=== PATIENT | male | born 1955 | race Caucasian/White ===

== ENCOUNTER 2016-07-31 13:36 | Emergency (ER) | payer OTHER ==
[2016-07-31 13:39] VITALS: BP 166/92; BMI 34.1
[2016-07-31] MEDS ORDERED: ADACEL TDaP IM ONE ×2 (13:44→13:47)
--- NOTE | 2016-07-31 14:09 | RAD ---
History: Cut left thumb with a saw Study: Three views left hand Findings: There are osteophytes diffusely about the DIP joints. There is no fracture or dislocation. There is no radiopaque foreign body. There is disruption of the soft tissues on the palmar tip of the thumb. There is narrowing of the 1st and 3rd metacarpal phalangeal joints with minimal osteophyt e formation. Impression: Osteoarthritis primarily of the DIP joints. Soft tissue injury of the tip of the thumb Reported By:
--- NOTE | 2016-07-31 15:18 | DR.EXTPAIN ---
HPI - Time seen Time seen: 14:50 - PCP Primary Care Physician: VINICIO - HPI Comment HPI Comment: Patient was using a saw and accidentally cut his left thumb with a table saw. The nail was spared and there was a pierc of skin avulsed. - Complaint/Symptoms Chief Complaint:: PT. CUT HIS THUMB TO LEFT HAND ON TABLESAW. LACERATION NOTED TO PAD OF THUMB. - Source History Provided: Parent - Mode of arrival Mode of Arrival: Ambulatory - Timing Onset of Chief Complaint: 07/31/16 PMH - PMH Past Medical History: Yes Past Medical History: Diabetes, Hypertension, [place] Past Surgical History: Yes Surgical History: Angioplasty/Stents, Cholecystectomy, Ortho Surgery, Thyroidectomy, Tonsillectomy - Family History History of Family Medical Conditions: Yes Family Medical History: Diabetes Mellitus, [place] - Social History Does patient currently use any type of tobacco product: No Have you used tobacco products in the last 12 months: No Type of Tobacco Use: None Does any household member use tobacco: No Alcohol Use: None Do you use any recreational Drugs:: No Lives With: Spouse Lives Where: Home - infectious screening In the last 2 months have you had wt loss of >10#?: NO Have you had fever, night sweats or hemotysis?: No Have you traveled outside the country in the last 6 months?: No Isolation: Standard ROS - Review of Systems Constitutional: Diaphoresis ENTM: No Symptoms Reported Respiratoy: No Symptoms Reported Cardiovascular: No Symptoms Reported Gastrointestinal/Abdominal: No Symptoms Reported Genitourinary: No Symptoms Reported Neurological: No Symptoms Reported Musculoskeletal: No Symptoms Reported Integumentary: See HPI Hematologic/Lymphatic: No Symptoms Reported Endocrine: No Symptoms Reported Psychiatric: No Symptoms Reported All Other Systems: Reviewed and Negative PE - Vital Signs Vitals: Temperature 97.5 F Pulse Rate 94 Respiratory Rate 18 Blood Pressure [Left Arm] 134/87 Blood Pressure [Right Arm] 137/91 Blood Pressure 166/92 O2 Sat by Pulse Oximetry 98 - General Limitations: No Limitations General Appearance: Alert, In No Apparent Distress - Head Head Exam: Normal Inspection, Atraumatic - Eyes Eye exam: Normal Appearance, PERRL, EOMI - ENT ENT Exam: Normal Exam - Neck Neck Exam: Normal Inspection - Cardiovascular Cardiovascular Exam: Regular Rate - Abdominal Exam Abdominal Exam: Normal Inspection Abdominal Tenderness: negative: RUQ, RLQ, LUQ, LLQ, Epigastrium, Suprapubic, Diffuse, Mild, Moderate, Severe, Other - Extremities Extremities Exam: Other (left thumb with a 4cm laceration) - Upper Extremities Shoulder Exam: Normal Inspection ROR - XRAY XRAY Interpreted by: Radiologist (Negative for fracture) Procedures - Laceration/Wound Repair Left Thumb Wound's Depth, Shape: Irregular, Flap Wound Explored: clean Betadine Prep?: Yes Anesthesia: 1% Lidocaine Wound Repaired With: sutures Suture Size/Type: 4:0, [place] Number of Sutures: 7 Layer Closure?: No - Diagnosis Discharge Problem: Thumb laceration Qualifiers: Encounter type: initial encounter Damage to nail status: unspecified Foreign body presence: without foreign body Laterality: left Qualified Code(s): S61.012A - Laceration without foreign body of left thumb without damage to nail , initial encounter - Discharge Plan Condition: Stable - Follow ups/Referrals Follow ups/Referrals: Norris Belle [Primary Care Provider] - 3 days - Instructions
== END 2016-07-31 15:37 | disposition home or self-care (01) ==
LOC: ER 13:36
PROC: 0XQM0ZZ Repair Left Thumb, Open Approach (ICD-10-PCS; principal; 2016-07-31)
DX: S61.012A Laceration without foreign body of left thumb without damage to nail, initial encounter (principal); W27.0XXA Contact with workbench tool, initial encounter; Y92.9 Unspecified place or not applicable
CPT/HCPCS: 12002; 73130; 90471; 99282